=== PATIENT | male | born 2005 | race Caucasian/White ===

== ENCOUNTER 2025-05-03 16:22 | Emergency (ER) | payer BC, SELFPAY ==
[2025-05-03 16:27] VITALS: BP 134/73
--- NOTE | 2025-05-03 18:33 | ED.GENMED ---
History of Present Illness
General
Chief Complaint: Skin Surface Trauma
Source: patient
Exam Limitations: none
Time Seen by Provider: 05/03/25 18:26
Nursing documentation reviewed up to this point in time: agreed with
History of Present Illness
History of Present Illness:
Patient is a 19-year-old male who presents to the emergency department for laceration of lip. Patient states that he was playing in a football game about 30 minutes prior to arrival when during a tackle an opposing teammates cleat pushed off his
helmet and struck him in the mouth. Patient sustained 2 lacerations to his face.
He denies any loss of consciousness. He denies headache, visual changes, vomiting, lightheadedness. He denies any neck pain or other injuries.
Last tetanus booster was in 2022 according to vaccination records.
Past History
Past History
ED Past Medical History: None
ED Past Surgical History: Orthopedic
Review of Systems
Review of Systems
Allergies reviewed?: Yes
All Other Systems: ROS reviewed and negative except as documented in HPI and ROS
Phy Exam
Physical Exam
Physical Exam:
Vitals: Patient's vital signs are stable. Afebrile
General: Patient is well appearing, no acute distress
Skin: Approx 2cm L-shaped superficial laceration on right upper lateral cutaneous lip, 2 cm gaping laceration of cutaneous lip at right corner fo mouth disrupting the jose border
Head: Normocephalic, laceration as described above
Throat: Normal dentition. Laceration to lip as above. Protecting airway
Neck: Normal ROM, no cervical spine tenderness
Cardiac: Regular rate
Pulm: No apparent respiratory distress
Abdomen: Nondistended
Extremities: No evidence of cyanosis or edema
Neuro: Grossly intact
Psychiatric: Normal affect.
Course
Orders/Labs/Results
Orders:
Orders
05/03/25 18:47
Acetaminophen [Tylenol] 650 mg PO NOW STA
Vital Signs
Initial and Last Documented VS:
Initial Vital Signs
Temp Pulse Resp BP Pulse Ox
98.2 F 90 16 134/73 97
05/03/25 16:27 05/03/25 16:27 05/03/25 16:27 05/03/25 16:27 05/03/25 16:27
Last Documented Vital Signs
Temp Pulse Resp BP Pulse Ox
98.2 F 90 16 134/73 97
05/03/25 16:27 05/03/25 16:27 05/03/25 16:27 05/03/25 16:27 05/03/25 18:35
Procedures
Laceration Closure
Upper Lateral Lip:
Status of Wound: imbedded foreign material
Size of Wound in cm: 2
Description of Wound Edges: sharp (L-shaped)
Preparation: cleaned with saline
Anesthesia: 1% Lidocaine
Revision/Debridement: routine- no revision
Wound exploration: all visible FB removed
Type of Closure: interrupted sutures
Skin Closure Material: 5-0 nylon and other
Number of sutures: 3
Lip:
Status of Wound: clean
Description of Wound Edges: sharp
Preparation: cleaned with saline
Anesthesia: 1% Lidocaine
Revision/Debridement: routine- no revision
Wound exploration: explored to base- no FB
Type of Closure: single layer closure
Skin Closure Material: 6-0 nylon
Number of sutures: 4
MDM/Problems Addressed
Differential Diagnosis Includes:
Not limited to: laceration, abrasion, etc.
MDM/Problems Addressed:
19-year-old male with lacerations to lip after injury playing football. Patient was struck in the face with an opposing teammates cleat. No associated loss of consciousness. He otherwise feels well. Vitals as above.
On exam � patient has two lacerations one at the corner of his mouth disrupting the jose border and the second on the right upper cutaneous lip.
Both lacerations will require primary closer with sutures. No evidence of significant head injury - do not feel imaging indicated at this time.
Case was briefly discussed with plastic surgery chief telephone operator at request of patient�s mother however they recommend primary closure in the emergency department and follow up outpatient for revision if needed.
Verbal consent obtained by both patient and patient�s mother. Both lacerations anesthetized with 1% lidocaine. Wounds were thoroughly irrigated with normal saline . Upper lip laceration closed with 3, 5-0 nylon simple interrupted sutures with great
approximation of skin edges. Corner of lip laceration closed with 4, 6-0 nylon sutures with great approximation of jose border and hemostasis obtained.
Patient tolerated procedure well.
T-dap vaccination received in 2022. No indication for booster today.
Wound care instructions discussed at length w/ patient and patient�s mother. Return precautions discussed. Patient and patients mother comfortabe with plan.
Chronic conditions affecting care:
N/A
Acute Exacerbation and/or Progression of Chronic Illness:
N/A
*Pulse Oximetry
SaO2: 97
Oxygen Mode of Delivery: Room air
Patient hypoxic: no
*EKG
Interpreted by ED Provider?: NA
*Medical Research Assistant Interpretation
Rate: Medical Research Assistant- N/A
*Critical Care Note
Total Time (30-74mins, 75-104mins- exclusive of procedures): Not Applicable
Patient Management
Discussion with other providers: Cardiac Sonographer (Case discussed with plastic)
ED Attending Note
-
Portions of this chart may have been created with voice recognition software.� Occasional wrong word or��sound alike� substitutions may have occurred due to the inherent limitations of voice recognition software.
Discharge Plan
Departure
Patient Disposition: Home (Routine Discharge)
Date of Disposition: 05/03/25
Time of Disposition: 19:45
Patient with high blood pressure during this ER visit?: Yes
Discharge Problem:
Laceration of lip
Instructions: Wound Care (DC), Laceration Repair With Stitches (DC), BLOOD PRESSURE
Referrals:
Brady Cain MD [Non-Admitting Privileges, Ophthalmology]
Camron Rojas MD [Active, Plastic Surgery]
Stand Alone Forms: Back to School
Activity Restrictions/Additional Instructions:
RETURN TO THE EMERGENCY DEPARTMENT WITH ANY SIGNS OF INFECTION INCLUDING FEVERS, SIGNIFICANT PAIN OR DRAINAGE FROM WOUND, RED STREAKING AWAY FROM WOUND, WORSENING CURRENT SYMPTOMS, OR ANY OTHER CONCERNS
- Your lacerations were closed with sutures today in the emergency department. These will need to be removed in 5 to 7 days. This can be done at your primary care, urgent care, or emergency department.
- Is important to keep wounds clean and dry. Wash gently with soap and water. Monitor closely for signs of infection
- I would recommend soft foods over the next few days. You can take Tylenol as needed for pain.
Monitor symptoms closely and return to the emergency department with any acute worsening/new symptoms or any signs of infection
Interventions
Interventions:
*Risk Screen - Suicide Last Done: 05/03/25 16:27
*General Assessment Last Done: 05/03/25 19:58
*Neglect/Abuse Screening Last Done: 05/03/25 16:27
*ED- Fall Risk Assessment Last Done: 05/03/25 16:27
*ED COVID-19 Vaccine History Last Done: 05/03/25 18:06
*Nursing Disposition Last Done: 05/03/25 19:58
ED-Skin Assessment Last Done: 05/03/25 18:57
Discharge Date and Time
Discharge Date/Time: 05/03/25 19:59
Print Language: CUBAN
[2025-05-03] MEDS: TYLENOL 650 MG PO (18:53)
== END 2025-05-03 19:59 | disposition home or self-care (01) ==
LOC: EMR 16:22
PROVIDERS: EMERGENCY PHYSICIAN Student in an Organized Health Care Education/Training Program
DX: S01.511A Laceration without foreign body of lip, initial encounter (principal); W20.8XXA Other cause of strike by thrown, projected or falling object, initial encounter; Y93.61 Activity, american tackle football
CPT/HCPCS: 99283; 12013